=== PATIENT | male | born 1950 | race Caucasian/White ===

== ENCOUNTER 2025-02-21 06:00 | Day surgery (SDC) | payer MEDICARE ==
[2025-02-20 14:10] VITALS: BMI 25.0
[2025-02-21] MEDS ORDERED: AFRIN NASAL MIST 15 ML BOT ONE (06:19)
[2025-02-21] MEDS ORDERED: Lidocaine 1% w/Epinephrine 1:200K 30 ML VIAL ONE (06:19)
[2025-02-21] MEDS ORDERED: Sevoflurane 250 ML INH ANEST BOTTLE ONE (06:19)
[2025-02-21] MEDS ORDERED: Rocuronium Bromide 10 MG/ML (10ML VIAL) ONE (06:23)
[2025-02-21] MEDS ORDERED: SUGAMMADEX SODIUM 200 MG/2 ML VIAL ONE ×2 (06:23→06:47)
[2025-02-21] MEDS ORDERED: Ondansetron PF 4 MG/2 ML Vial ONE (06:23)
[2025-02-21] MEDS ORDERED: PROPOFOL 40 ML ONE (06:23)
[2025-02-21] MEDS ORDERED: Glycopyrrolate 0.2 MG/ML 5 ML SYRINGE ONE (06:24)
[2025-02-21] MEDS ORDERED: CEFAZOLIN 2 GM VIAL ONE (06:43)
[2025-02-21 07:09] LABS: Hematocrit 36.3 % (38.8-50.0); Hemoglobin 12.7 g/dL (13.5-17.5)
[2025-02-21 07:27] LABS: ALT (SGPT) 21 U/L (Less than 45); AST (SGOT) 33 U/L (11-34); Albumin 3.3 g/dL (3.1-4.5); Alkaline Phosphatase 65 U/L (40-110); Anion Gap 14 mmol/L (10-20); BUN (Urea Nitrogen) 8 mg/dL (8.4-25.7); Bilirubin, Total 0.8 mg/dL (0.3-1.2); Calc. Creatinine Clearance 107 mL/min (70-130); Calcium 8.8 mg/dL (7.8-10.44); Carbon Dioxide 24 mmol/L (23-31); Chloride 100 mmol/L (98-107); Globulin 3.1 g/dL (2.4-3.5); Glucose 114 mg/dL (83-110); Potassium 3.7 mmol/L (3.5-5.1); Sodium 134 mmol/L (136-145)
[2025-02-21] MEDS ORDERED: PHENYLEPHRINE-NS 100 MCG/ML 10 ML SYRINGE ONE (07:45)
[2025-02-21] MEDS ORDERED: PROPOFOL 20 ML ONE (08:01)
[2025-02-21] MEDS ORDERED: HYDROcodone/Acetaminophen 5/325 mg Tablet ONE (11:02)
== END 2025-02-21 11:58 | disposition home or self-care (01) ==
LOC: CSHSDC 06:00
PROVIDERS: ATTEND Otolaryngology Otolaryngic Allergy
PROC: 5A09357 Assistance with Respiratory Ventilation, Less than 24 Consecutive Hours, Continuous Positive Airway Pressure (ICD-10-PCS; principal; 2025-02-21)
DX: G47.33 Obstructive sleep apnea (adult) (pediatric) (principal)
CPT/HCPCS: 42975; 64582; 70360; 71045; 80053; 85014; 85018; C1778 ×2; C1820; J1100; J2405; J2704; J3010; J3373; C1787; J0169